=== PATIENT | male | born 1985 | race Caucasian/White ===

== ENCOUNTER 2023-03-27 17:25 | Observation (INO) ==
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
--- NOTE | 2023-03-27 19:10 | XRay Report ---
XR foot LT min 3V routine CLINICAL HISTORY: L foot pain, wound, fevers COMPARISON STUDY: None. FINDINGS: There is a slightly impacted fracture at the neck of the left second metatarsal. No additio nal fractures identified within the left foot. No dislocation. The Lisfranc joint is intact. No bony destructive changes. There is soft tissue swelling within the left forefoot. No soft tissue gas or ra diopaque foreign bodies identified. IMPRESSION: Slightly impacted fracture at the neck of the left second metatarsal. ACT 112: Negative or not required by law. Electronically signed by: Mendel Hawkins M.D. 03/27/2023 7:09 PM
[2023-03-27] MEDS ORDERED: SODIUM CHLORIDE 0.9% 1000ML 500 ML IV ONE (19:29)
[2023-03-27] MEDS ORDERED: ONDANSETRON INJ 2 MG/ML 2 ML VIAL IV STA (19:29)
[2023-03-27] MEDS ORDERED: KETOROLAC TROMETHAMINE 15 MG/ML VIAL IV ONE ×2 (19:29→20:15)
[2023-03-27] MEDS ORDERED: SODIUM CHLORIDE 0.9% 1000ML 1,000 ML IV ONE (19:29)
[2023-03-27] MEDS ORDERED: CEFEPIME 2,000 MG/20 ML VIAL IV STA (19:29)
[2023-03-27] MEDS ORDERED: DAPTOmycin 450 MG in SYRINGE 0 ML IV SCH (19:30)
--- NOTE | 2023-03-27 19:54 | Emergency Department Note ---
Impression & Plan Cellulitis, Rigors, Fracture of second metatarsal bone of left foot ED Provider Note INFORMANT: Patient ED PROVIDER(S): Ryan Petit MD CHIEF COMPLAINT: Foot pain PLAN: Disposition: Admitted Condition: Good Outpatient prescription management: none Referral: None MEDICAL DECISION MAKING: Patient presented due to the foot pain. On physical examination there was concerns for infection. Patient had rigors and chills. Blood work was initiated. He was hydrated with IV fluids. Cultures of the wound as well as blood cultures obtained. Patient was given cefepime and daptomycin for broad- spectrum antibiotic coverage. X-ray imaging revealed a fracture of the distal second metatarsal. No obvious radiopaque foreign body or subcu air noted. Patient was treated with Zofran and Dilaudid. He had a consultation placed with Dr. Oliver of orthopedics. He agreed with antibiotics and recommended a postop shoe and MR imaging. He will consult on the patient tomorrow for further management. CBC, chemistry panel, inflammatory markers unremarkable. Patient will need further management in the hospital. Consultation was made with Dr. Niall Chavez of the [facility] service. Patient was evaluated in the ER for further management. Discussed with manager intranet After review of the information above and other included data, I feel the patient requires admission. Triage Nursing notes reviewed and agree them. Vital Signs: reviewed and remarkable for tachycardia Prior /Outside records reviewed: none Differential diagnosis: Cellulitis, abscess, MRSA infection, DVT, necrotizing fasciitis, dermatitis, drug eruption, allergic reaction, as well as other pathologies. Diagnostics, as interpreted by me: ECG: none Cardiac Monitoring: Cardiac monitoring ordered by me: The patient was placed on continuous cardiac monitoring and observed. It revealed a sinus tachycardic rhythm at 104 beats per minute without ectopy or evidence of dysrhythmia. Medical decision rules: none Imaging studies: X-ray imaging of the left foot reveals a impacted distal second metatarsal fracture. No subcutaneous air appreciated. HPI: The patient is a 37 year old male who presents to the Emergency Room with complaints of left foot pain. This started 9 days ago and is from cutting his foot with an axe/maul. Patient notes that 5 days ago he went to urgent care and was referred to the [place] emergency department that evening due to concerns about of infection. He notes he did have an open wound and was having foot pain. He was given antibiotics in the ER at [place] and was seen by the orthopedic PA. He was told he had a fracture in the foot and had 3 sutures placed in his wound. Patient was discharged early Sunday morning and was instructed to have office follow-up. The patient also notes the following associated symptoms developing over the last few days, rigors, chills, sweating, increasing pain, redness spreading up the dorsal aspect of the foot, increased pain. The patient has been prescribed doxycycline for relieving factors. Current pain is rated as 10 fever,/10. Pt denies LOC, headache,visual changes, neck pain, chest pain, breathing difficulties, nausea, vomiting, abdominal pain, back pain, melena, hematochezia, urinary symptoms, numbness, weakness, lymphadenopathy, rash, or other complaints. PAST MEDICAL HISTORY: See Below, kidney PAST SURGICAL HISTORY: See Below, SOCIAL HISTORY: See Below, employed as chiropractor HOME MEDICATIONS: See Below ALLERGIES: See Below VITALS: See Below PHYSICAL EXAMINATION: GENERAL: Awake, alert, w in ell-appearing, in no mild distress HENT: Normocephalic, atraumatic. Oropharynx unremarkable. EYES: Normal conjunctiva. Sclera non-icteric. NECK: Inspection normal. Non-tender. Supple. No nuchal rigidity. FROM. No mass es. RESPIRATORY: Clear to auscultation. No wheezes. No rales. Normal respiratory effort. CARDIAC: Tachycardic rate. Normal rhythm. No murmurs. No rubs. Extremities warm and well perfused. Pulses equal. No JVD. GI: Soft, non-distended. No tenderness to palpation. No rebound or guarding. No masses. RECTAL: Deferred. MUSCULOSKELETAL: Atraumatic. Chest examination reveals no tenderness. The back i s symmetrical on inspection without obvious abnormality. There is no CVA tenderness to palpation. No joint edema. LOWER EXTREMITIES: Calves are equal size bilaterally and non-tender. There is mild edema to the dorsal aspect of the left foot with surrounding erythema and a small red malaika streaking up the dorsal aspect of the foot concerning for cellulitis. Small surrounding erythema of the wound. [address] Significant tender to palpation over the second metatarsal distal aspect and surrounding the wound. No crepitus. NEURO: Normal sensorium. No sensory or motor deficits noted. SKIN: No rash or jaundice noted. Past Med/Surg History Medical History No chronic diseases present Surgical History No significant past surgical history Social History Smoking Status: Never smoker Preferred Language: Malay Feels Safe at Home: Yes Allergies Allergies Allergy/AdvReac Type Severity Reaction Status Date / Time No Known Allergies Allergy Verified 03/27/23 19:35 Home Meds Home Medications Medication Instructions Recorded Confirmed No Known Home Medications 03/27/23 03/27/23 Results & Data (ED) Vital Signs Vital Signs - 24 hr 03/27/23 17:29 03/27/23 19:27 03/27/23 19:25 Temperature 37.4 C Temperature Source Oral Pulse Rate 106 H 83 Pulse Rate from SpO2 Sensor Respiratory Rate 16 Respiratory Effort / Characteristics Non-Labored Spontaneous Non-Labored Spontaneous Respiratory Depth Normal Normal Blood Pressure 150/81 H Blood Pressure Mean 104 Pulse Oximetry 98 Oxygen Delivery Method Room Air Sepsis Recent Fever Within 48 Hours Yes Sepsis New/Unexplained Change in Mental Status No Sepsis Action Taken by Nursing No Action Required 03/27/23 19:11 03/27/23 19:20 03/27/23 19:30 Temperature Temperature Source Pulse Rate 88 91 H 83 Pulse Rate from SpO2 Sensor 118 H Respiratory Rate 24 24 16 Respiratory Effort / Characteristics Respiratory Depth Blood Pressure Blood Pressure Mean Pulse Oximetry 93 Oxygen Delivery Method Sepsis Recent Fever Within 48 Hours Sepsis New/Unexplained Change in Mental Status Sepsis Action Taken by Nursing 03/27/23 20:00 03/27/23 20:18 03/27/23 20:30 Temperature Temperature Source Pulse Rate 82 76 83 Pulse Rate from SpO2 Sensor Respiratory Rate 16 15 16 Respiratory Effort / Characteristics Respiratory Depth Blood Pressure 123/79 Blood Pressure Mean 93 Pulse Oximetry Oxygen Delivery Method Sepsis Recent Fever Within 48 Hours Sepsis New/Unexplained Change in Mental Status Sepsis Action Taken by Nursing 03/27/23 21:00 03/27/23 21:30 03/27/23 22:00 Temperature Temperature Source Pulse Rate 64 64 58 L Pulse Rate from SpO2 Sensor 65 64 60 Respiratory Rate 14 16 12 Respiratory Effort / Characteristics Respiratory Depth Blood Pressure Blood Pressure Mean Pulse Oximetry 97 95 95 Oxygen Delivery Method Sepsis Recent Fever Within 48 Hours Sepsis New/Unexplained Change in Mental Status Sepsis Action Taken by Nursing 03/27/23 22:30 03/27/23 22:31 03/28/23 00:07 Temperature Temperature Source Pulse Rate 71 69 68 Pulse Rate from SpO2 Sensor 71 65 Respiratory Rate 15 17 16 Respiratory Effort / Characteristics Respiratory Depth Blood Pressure 145/74 H 142/82 H Blood Pressure Mean 97 Pulse Oximetry 85 L 97 97 Oxygen Delivery Method Room Air Sepsis Recent Fever Within 48 Hours Sepsis New/Unexplained Change in Mental Status Sepsis Action Taken by Nursing Laboratory Data 03/27/23 19:38 03/27/23 19:38 Lab Results 03/27/23 03/27/23 03/27/23 Range/Units 19:38 19:38 19:38 WBC 8.08 (4.8-10.8) K/ul RBC 4.70 (4.70-6.10) M/uL Hgb 14.9 (14.0-18.0) g/dl Hct 42.2 (42.0-52.0) % MCV 89.8 (80.0-100.0) fL MCH 31.7 (25.0-34.0) pg MCHC 35.3 (32.0-36.0) g/dL RDW Std Deviation 42.2 (36.4-46.3) fL RDW Coeff of Alexi 12.9 (11.5-14.5) % Plt Count 258 (130-400) K/uL MPV 10.4 (9.4-12.4) fL Immature Gran % (Auto) 0.4 % Neut % (Auto) 66.0 % Lymph % (Auto) 21.9 % [place] % (Auto) 9.7 % Eos % (Auto) 1.6 % Baso % (Auto) 0.4 % Neut # (Auto) 5.34 (1.40-6.50) K/uL Lymph # (Auto) 1.77 (1.2-3.4) K/uL [place] # (Auto) 0.78 H (0.11-0.59) K/uL Eos # (Auto) 0.13 (0-0.50) K/uL Baso # (Auto) 0.03 (0-0.2) K/uL Immature Gran # (Auto) 0.03 (0.01-0.20) K/uL ESR 6 (0-15) mm/hr Sodium (136-145) mmol/L Potassium (3.5-5.1) mmol/L Chloride (98-107) mmol/L Carbon Dioxide (21-32) mmol/L Anion Gap (3-11) BUN (6-23) mg/dl Creatinine (0.6-1.4) mg/dl Est Cr Clr Drug Dosing ml/min Est GFR ( Amer) ml/min Est GFR (Non-Af Amer) ml/min BUN/Creatinine Ratio (10-20) Glucose (70-99(Fasting)) mg/dl Lactate 1.4 (0.4-2.0) mmol/L Calcium (8.6-10.3) mg/dl Total Bilirubin (0.2-1.0) mg/dl AST (13-39) U/L ALT (7-52) U/L Alkaline Phosphatase (34-104) U/L C-Reactive Protein (0-0.5) mg/dl Total Protein (6.0-8.3) gm/dl Albumin (3.4-5.0) gm/dl Globulin (2.5-4.0) gm/dl Albumin/Globulin Ratio (0.9-2) Procalcitonin (0-0.5) ng/ml 03/27/23 03/27/23 Range/Units 19:38 19:38 WBC (4.8-10.8) K/ul RBC (4.70-6.10) M/uL Hgb (14.0-18.0) g/dl Hct (42.0-52.0) % MCV (80.0-100.0) fL MCH (25.0-34.0) pg MCHC (32.0-36.0) g/dL RDW Std Deviation (36.4-46.3) fL RDW Coeff of Alexi (11.5-14.5) % Plt Count (130-400) K/uL MPV (9.4-12.4) fL Immature Gran % (Auto) % Neut % (Auto) % Lymph % (Auto) % [place] % (Auto) % Eos % (Auto) % Baso % (Auto) % Neut # (Auto) (1.40-6.50) K/uL Lymph # (Auto) (1.2-3.4) K/uL [place] # (Auto) (0.11-0.59) K/uL Eos # (Auto) (0-0.50) K/uL Baso # (Auto) (0-0.2) K/uL Immature Gran # (Auto) (0.01-0.20) K/uL ESR (0-15) mm/hr Sodium 138 (136-145) mmol/L Potassium 3.6 (3.5-5.1) mmol/L Chloride 105 (98-107) mmol/L Carbon Dioxide 26 (21-32) mmol/L Anion Gap 7 (3-11) BUN 22 (6-23) mg/dl Creatinine 0.91 (0.6-1.4) mg/dl Est Cr Clr Drug Dosing 115.5 ml/min Est GFR ( Amer) 122.6 ml/min Est GFR (Non-Af Amer) 105.8 ml/min BUN/Creatinine Ratio 24.2 H (10-20) Glucose 129 H (70-99(Fasting)) mg/dl Lactate (0.4-2.0) mmol/L Calcium 8.9 (8.6-10.3) mg/dl Total Bilirubin 0.4 (0.2-1.0) mg/dl AST 20 (13-39) U/L ALT 21 (7-52) U/L Alkaline Phosphatase 59 (34-104) U/L C-Reactive Protein < 0.50 (0-0.5) mg/dl Total Protein 7.4 (6.0-8.3) gm/dl Albumin 4.3 (3.4-5.0) gm/dl Globulin 3.1 (2.5-4.0) gm/dl Albumin/Globulin Ratio 1.4 (0.9-2) Procalcitonin < 0.05 (0-0.5) ng/ml Administered Medications Hydromorphone HCl (Hydromorphone Inj 0.5 Mg/0.5 Ml Syr) 0.5 mg IV Q15M PRN PRN Reason: Pain Stop: 04/10/23 19:28 Last Admin: 03/28/23 00:07 Dose: 0.5 mg Documented By: Admin: 03/27/23 22:32 Dose: 0.5 mg Documented By: Admin: 03/27/23 20:44 Dose: 0.5 mg Documented By: FERN Daptomycin 450 mg/ Syringe 9 mls @ 4.5 mls/min IV Q24H BABITA; Protocol Stop: 03/29/23 19:29 Last Admin: 03/27/23 20:38 Dose: 4.5 mls/min Documented By: FERN Discontinued Medications Cefepime HCl (Maxipime) 2,000 mg in 20 mls @ 5 mls/min IV NOW STA; Protocol Stop: 03/27/23 19:32 Last Admin: 03/27/23 20:01 Dose: 5 mls/min Documented By: FERN Sodium Chloride (Nss 1000ml) 1,000 mls @ 999 mls/hr IV .Q1H1M ONE Stop: 03/27/23 20:29 Last Infusion: 03/27/23 21:03 Dose: 0 mls/hr Documented By: Admin: 03/27/23 19:59 Dose: 999 mls/hr Documented By: FERN Sodium Chloride (Nss 1000ml) 500 mls @ 999 mls/hr IV .Q31M ONE Stop: 03/27/23 19:59 Last Infusion: 03/27/23 20:37 Dose: 0 mls/hr Documented By: Admin: 03/27/23 20:00 Dose: 999 mls/hr Documented By: FERN Ketorolac Tromethamine (Ketorolac Tromethamine 15 Mg/Ml Vial) 10 mg IV NOW ONE Stop: 03/27/23 19:30 Last Admin: 03/27/23 20:16 Dose: 10 mg Documented By: FERN Ketorolac Tromethamine (Ketorolac Tromethamine 15 Mg/Ml Vial) 10 mg IV NOW ONE Stop: 03/27/23 20:16 Last Admin: 03/27/23 20:16 Dose: Not Given Documented By: FERN Ondansetron HCl (Ondansetron Inj 2 Mg/Ml 2 Ml Vial) 4 mg IV NOW STA Stop: 03/27/23 19:30 Last Admin: 03/27/23 20:00 Dose: 4 mg Documented By: FERN Imaging Data Radiologist's Impression: Foot X-Ray 03/27/23 17:33 XR foot LT min 3V routine CLINICAL HISTORY: L foot pain, wound, fevers COMPARISON STUDY: None. FINDINGS: There is a slightly impacted fracture at the neck of the left second metatarsal. No additional fractures identified within the left foot. No dislocation. The Lisfranc joint is intact. No bony destructive changes. There is soft tissue swelling within the left forefoot. No soft tissue gas or radiopaque foreign bodies identified. IMPRESSION: Slightly impacted fracture at the neck of the left second metatarsal. ACT 112: Negative or not required by law. Electronically signed by: Mendel Hawkins M.D. 03/27/2023 7:09 PM Foot MRI 03/27/23 22:40 Exam(s): MRI LEFT FOOT Without Contrast EXAM: MR Left Lower Extremity Without Intravenous Contrast, Foot CLINICAL HISTORY: Reason for exam: Left foot fracture/infection. TECHNIQUE: Multiplanar magnetic resonance images of the left foot without intravenous contrast. COMPARISON: X-ray 03/27/2023. FINDINGS: LIGAMENTS: Visualized ligaments throughout the mid anterior foot are unremarkable. TENDONS: Difficult to visualize the tendons through the second metatarsal and phalanges. Otherwise the visualized tendons are within normal limits. Muscles: Nonspecific edema predominantly surrounding the second metatarsal. Fluid: Mild joint effusion at the level of the dorsum of the second metatarsophalangeal joint. Bones/joints: There is T2 hyperintensity within the mid distal second metatarsal shaft and second metatarsal head concerning for osteomyelitis. This corresponds to linear T1 hypointensity compatible of fracture with mild associated impaction. Fluid with the increased signal surrounding the mid distal aspect of the second metatarsal shaft and second metatarsal head. There is fluid along the dorsum of the foot from the first through third metatarsal and tarsal bones. Remainder of the metatarsal and phalanges first through fifth toes are unremarkable. IMPRESSION: 1. Diffuse edema along the dorsum of the mid anterior foot predominantly along the anterior tarsal and metatarsal bones and more severe surrounding the mid distal second metatarsal. Associated bone marrow edema to the mid distal second metatarsal shaft extending to the metatarsal head with associated slightly impacted fracture at the metatarsal head junction with the shaft. 2. No other fractures are identified. 3. Normal anatomical articular alignment. Electronically signed by: Elvia Arredondo MD 03/28/23 00:14 AM Discharge Plan Visit Data Chief Complaint: Foot Injury/Pain Stated Complaint: FOOT FRACTURE, AND INFECTED FOOT LAC ED Provider: Ryan Petit Discharge Problem: Cellulitis, Rigors, Fracture of second metatarsal bone of left foot Discharge Instructions Interventions: ED Discharge Assessment Last Done: 03/28/23 00:07 Forms Stand Alone Forms: My [facility] Prescriptions Prescriptions: No Action No Known Home Medications Referrals Referrals: Ryan Perez D.O. [Primary Care Provider] -
[2023-03-27 20:38] LABS: Basophils # (auto) 0.03 K/uL (0-0.2); Basophils % (auto) 0.4 %; Eosinophils # (auto) 0.13 K/uL (0-0.50); Eosinophils % (auto) 1.6 %; Hematocrit (blood only) 42.2 % (42.0-52.0); Hemoglobin 14.9 g/dl (14.0-18.0); Immature Granulocytes # (auto) 0.03 K/uL (0.01-0.20); Immature Granulocytes % (auto) 0.4 %; Lymphocytes # (auto) 1.77 K/uL (1.2-3.4); Lymphocytes % (auto) 21.9 %; Mean Corpuscular Hemoglobin 31.7 pg (25.0-34.0); Mean Corpuscular Hgb Conc 35.3 g/dL (32.0-36.0); Mean Corpuscular Volume 89.8 fL (80.0-100.0); Mean Platelet Volume 10.4 fL (9.4-12.4); Monocytes # (auto) 0.78 K/uL (0.11-0.59); Monocytes % (auto) 9.7 %; Neutrophils # (auto) 5.34 K/uL (1.40-6.50); Platelet Count 258 K/uL (130-400); RDW Coefficient of Variation 12.9 % (11.5-14.5); RDW Standard Deviation 42.2 fL (36.4-46.3); White Blood Count 8.08 K/ul (4.8-10.8)
[2023-03-27] MEDS: HYDROmorphone INJ 0.5 MG/0.5 ML SYR IV PRN ×2 (20:44→22:32)
[2023-03-27 20:45] LABS: Alanine Aminotransferase 21 U/L (7-52); Albumin Globulin Ratio 1.4 (0.9-2); Albumin Level 4.3 gm/dl (3.4-5.0); Alkaline Phosphatase 59 U/L (34-104); Anion Gap 7 (3-11); Aspartate Aminotransferase 20 U/L (13-39); BUN Creatinine Ratio 24.2 (10-20); Bilirubin,Total 0.4 mg/dl (0.2-1.0); Blood Urea Nitrogen 22 mg/dl (6-23); C Reactive Protein < 0.50 mg/dl (0-0.5); Calcium 8.9 mg/dl (8.6-10.3); Carbon Dioxide 26 mmol/L (21-32); Chloride 105 mmol/L (98-107); Creatinine Clr Calc Pharmacy 115.5 ml/min; Est GFR (African American) 122.6 ml/min; Est GFR (Non-African American) 105.8 ml/min; Globulin 3.1 gm/dl (2.5-4.0); Glucose 129 mg/dl (70-99(Fasting)); Potassium 3.6 mmol/L (3.5-5.1); Sodium 138 mmol/L (136-145); Total Protein 7.4 gm/dl (6.0-8.3)
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
[2023-03-28] MEDS: HYDROmorphone INJ 0.5 MG/0.5 ML SYR IV PRN ×5 (00:07→11:11)
--- NOTE | 2023-03-28 00:15 | Magnetic Resonance Report ---
Exam(s): MRI LEFT FOOT Without Contrast EXAM: MR Left Lower Extremity Without Intravenous Contrast, Foot CLINICAL HISTORY: Reason for exam: Left foot fracture/infection. TECHNIQUE: Multiplanar magnetic resonance images of the left foot without intravenous contrast. COMPARISON: X-ray 03/27/2023. FINDINGS: LIGAMENTS: Visualized ligaments throughout the mid anterior foot are unremarkable. TENDONS: Difficult to visualize the tendons through the second metatarsal and phalanges. Otherwise the visualized tendons are within normal limits. Muscles: Nonspecific edema predominantly surrounding the second metatarsal. Fluid: Mild joint effusion at the level of the dorsum of the second metatarsophalangeal joint. Bones/joints: There is T2 hyperintensity within the mid distal second metatarsal shaft and second metatarsal head concerning for osteomyelitis. This corresponds to linear T1 hypointensity compatible of fracture with mild associated impaction. Fluid with the increased signal surrounding the mid distal aspect of the second metatarsal shaft and second metatarsal head. There is fluid along the dorsum of the foot from the first through third metatarsal and tarsal bones. Remainder of the metatarsal and phalanges first through fifth toes are unremarkable. IMPRESSION: 1. Diffuse edema along the dorsum of the mid anterior foot predominantly along the anterior tarsal and metatarsal bones and more severe surrounding the mid distal second metatarsal. Associated bone marrow edema to the mid distal second metatarsal shaft extending to the metatarsal head with associated slightly impacted fracture at the metatarsal head junction with the shaft. 2. No other fractures are identified. 3. Normal anatomical articular alignment. Electronically signed by: Elvia Arredondo MD 03/28/23 00:14 AM
[2023-03-28] MEDS ORDERED: KETOROLAC TROMETHAMINE 15 MG/ML VIAL IV PRN (01:11)
[2023-03-28] MEDS ORDERED: HYDROmorphone INJ 0.5 MG/0.5 ML SYR IV PRN (01:11)
[2023-03-28 07:08] LABS: BUN Creatinine Ratio 20.2 (10-20); Calcium 8.7 mg/dl (8.6-10.3); Creatinine Clr Calc Pharmacy 118.1 ml/min; Est GFR (African American) 124.8 ml/min; Est GFR (Non-African American) 107.7 ml/min; Magnesium 2.1 mg/dl (1.7-2.4); Potassium 3.9 mmol/L (3.5-5.1)
--- NOTE | 2023-03-28 07:08 | Hospitalist Progress Note ---
Date of Service March 28, 2023 Assessment & Plan (1) Fracture of second metatarsal bone of left foot: Plan: Pt is a 37 yo male with no PMH who presented to the ER with concern for infection following left second metatarsal fracture sustained in ax injury. Now admitted for supportive management, pending further evaluation by orthopedic surgery. #Left second metatarsal fracture -Noted on XR foot 10 days ago. Constitutional symptoms occurred despite initiation of doxycycline. -Negative infectious, inflammatory markers on initial lab work-up. No electrolyte, renal, or hepatic derangements on CMP. * Pain control: IV Toradol 15 mg every 6 hours as needed (patient reports diarrhea with Tylenol or ibuprofen); IV Dilaudid for pain refractory to Toradol. * Continue IV daptomycin for 150 mg every 24 hours wound and blood culture pending * Orthopedic surgery consult placed, awaiting recommendations #Thoracic back pain -Acute. Etiology unclear. Given tenderness to palpation, responsiveness to analgesics, suspect myalgia or deep bruise. Also unclear if he is whether distribution of macules diffusely is associated with pain. -S/p CXR, which is negative for acute skeletal process. Consider ultrasound if symptoms persist. * Trend symptom course clinically. * Pain control as above. Code: Full code Dispo: Med-Surg FEN/GI: Regular DVT Prophylaxis: pt at low risk for VTE at this time Consults: Orthopedic surgery Case Management: No Admission and Anticipated Discharge Date Admission Date: March 27, 2023 Supervising Physician Co-Signing Physician Notes I personally examined the patient and verified all acuña points of history and exam, discussed case, and agree with decision making with Dr Werner Feeling okay. Pain under better control. Vitals noted, in general he is awake and alert pleasant no distress. HEENT normocephalic atraumatic mucous membranes moist. Breathing unlabored no accessory muscle use good effort. Foot shows a small laceration type wound about 1 cm in length, no exudate, dull surrounding redness more consistent with perilaceration inflammation, nothing that is warm or tender consistent with true erythema/cellulitis, there is no exudate expressible. Inflammatory markers are quite low, MRI mostly consistent with posttraumatic changes. Foot fracture/lacerationantibiotic prophylaxis, but fortunately no evidence of true infection. Safe for home, pain control, PCP follow-up to follow the wound for healing and any secondary signs of infection, Ortho follow-up in regards to the fracture. Subjective Pt is a 37 yo male with no PMH who presented to the ER with concern for infection following left second metatarsal fracture sustained in ax injury. Pt states that he was renovating a home and on 03/18 or 03/19 he swung his ax and it struck his foot. He then managed at home until 03/22, when he went to [facility] urgent care since he was concerned it may be infected. They confirmed the fracture and send him home with doxycycline and gave him a tetanus vaccine. He states that this week he started to get intermittent fever and chills and the wound became more red and puffy, so he came to [facility] for further evaluation. Today, he states that he feels okay. No questions or complaints, states he is just waiting for ortho to take a look. Review of Systems Review of Systems: Constitutional: denies fever or chills today Cardio: denies chest pain, palpitations Resp: denies shortness of breath, cough GI: denies abdominal pain, nausea, vomiting, constipation, diarrhea Physical Exam Physical Exam: General:Alert and oriented, no acute distress, HEENT: Normocephalic, moist oral mucosa, Cardio: Regular rate and rhythm, no murmur, Resp:Lungs clear to auscultation b/l, no wheezes or rhonchi, GI: Soft and nontender, nondistended, bowel sounds active Extremities: L top foot approx 1 inch laceration noted without drainage at this time, but with surrounding erythema and swelling, MSK: Notable hypertonicity noted of the lower thoracic/upper lumbar paraspinal muscles on the R side, which are slightly tender to palpation Skin: Warm, pink, dry, Psych: Mood-affect congruence. Results & Data Results & Data Vital Signs (Past 12 Hours) Vital Signs Temp Pulse Pulse Resp BP BP Pulse Ox 03/28/23 00:57 37 C 73 18 129/80 95 03/28/23 00:07 68 16 142/82 H 97 03/27/23 22:31 69 17 145/74 H 97 03/27/23 22:30 71 15 85 L 03/27/23 22:00 58 L 12 95 03/27/23 21:30 64 16 95 03/27/23 21:00 64 14 97 08/15/23 20:30 83 16 03/27/23 20:18 76 15 123/79 03/27/23 20:00 82 16 03/27/23 19:30 83 16 03/27/23 19:20 91 H 24 03/27/23 19:11 88 24 93 03/27/23 19:27 83 O2 Del Method 03/28/23 00:57 Room Air 03/28/23 00:07 Room Air 03/27/23 22:31 03/27/23 22:30 03/27/23 22:00 03/27/23 21:30 03/27/23 21:00 03/27/23 20:30 03/27/23 20:18 03/27/23 20:00 03/27/23 19:30 03/27/23 19:20 03/27/23 19:11 03/27/23 19:27 Resident Activity Tracking Resident Involvement: Resident Care Provided Care Provided: Adult Hospital Medicine
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
[2023-03-28 08:06] LABS: Hematocrit (blood only) 41.5 % (42.0-52.0); Hemoglobin 14.3 g/dl (14.0-18.0); Mean Corpuscular Hemoglobin 31.5 pg (25.0-34.0); Mean Corpuscular Hgb Conc 34.5 g/dL (32.0-36.0); Mean Corpuscular Volume 91.4 fL (80.0-100.0); Mean Platelet Volume 10.1 fL (9.4-12.4); Platelet Count 237 K/uL (130-400); RDW Coefficient of Variation 13.1 % (11.5-14.5); RDW Standard Deviation 43.6 fL (36.4-46.3); Red Blood Count 4.54 M/uL (4.70-6.10); White Blood Count 8.84 K/ul (4.8-10.8)
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
--- NOTE | 2023-03-28 18:32 | Billing Data ---
Date of Service March 28, 2023 Coding Level of Care Code 95377 IN/OBS DISCH 30 MIN/LESS
--- NOTE | 2023-03-29 02:38 | Billing Data ---
Date of Service March 29, 2023 Coding Level of Care Code 88843 INT INP/OBS CARE
== END 2023-03-28 17:27 | disposition home or self-care (01) ==
LOC: ED 17:25 → 3E 17:25 → SUATTDRO 21:54 → 3E 03-28 00:07